=== PATIENT | male | born 1960 | race Caucasian/White ===

== ENCOUNTER 2016-09-09 14:46 | Emergency (ER) | payer SELFPAY ==
[~2016-09-09] VITALS: Ht 172.7 cm; Wt 81.1 kg
[2016-09-09 14:46] VITALS: Ht 172.7 cm; Wt 81.1 kg
[~2016-09-09 14:46] MED LIST: ALBUAER19 INH
[2016-09-09] MEDS ORDERED: KETOROLAC TROMETHAMINE 60 MG/2 ML VIAL IM STA (15:19)
[2016-09-09] MEDS ORDERED: MoRPHine SULFATE 10 MG/ML CARP/VIAL IM STA (15:19)
[2016-09-09] MEDS ORDERED: PRVHFAIN INH (15:27)
[2016-09-09] MEDS ORDERED: IBUP-1450 PO (15:27)
[2016-09-09] MEDS ORDERED: MoRPHine SULFATE 2 MG/ML CARP ONE (15:32)
[2016-09-09] MEDS ORDERED: MoRPHine SULFATE 4 MG/ML 1 ML CARP\\VIAL ONE (15:32)
--- NOTE | 2016-09-09 16:09 | EMERGENCY ROOM VISIT NOTE ---
History First contact with patient: 14:54 Chief Complaint: BACK PAIN Stated Complaint: BACK PAIN History of Present Illness The patient is a 56 year old male who presents to the Emergency Room with complaints of low back pain 3 weeks. The patient states that he has a history of chronic back pain which flares up 1-2 times per year. He states that typically, he is able to do exercises to "open his vertebrae" and this helps to relieve his pain. He states that he has tried these exercises with no relief. The pain is located in the low back and is worse on the left side. He states that the pain is worse when he sits for a long time. He is having difficulty moving and states that he has been unable to climb stairs for the past few days because he is having difficulty lifting his legs. He states he has had a tingling sensation in both legs, worse in the right leg. He states that he called the ambulance because he was not able to get himself into a car to come here. He has not been taking any medications at home for the pain. He has never seen a specialist for his back pain. Review of Systems A complete 10 point review of systems was reviewed with the patient with pertinent positives and negatives as per history of present illness. All else were negative. Social History Smoking Status: Former Smoker Current/Historical Medications Scheduled Prednisone (Prednisone), 0 PO DAILY Scheduled PRN Albuterol (Ventolin Hfa), 2 PUFFS INH UD PRN for Wheezing Hydrocodone/Acetaminophen 5MG/325MG ([place] 5MG/325MG), 1-2 TABLET PO Q4H PRN for Pain Ibuprofen (Motrin), 600 MG PO Q6H PRN for Pain Allergies Coded Allergies: Egg (Verified Allergy, ,, 12/14/11) Peanut Butter Flavor (Verified Allergy, ,, 12/14/11) Penicillins (Verified Allergy, ., 12/14/11) Physical Exam Vital Signs Date Time Temp Pulse Resp B/P (MAP) Pulse Ox O2 Delivery O2 Flow Rate FiO2 09/09/16 18:10 36.6 61 18 118/78 98 09/09/16 18:09 61 18 118/78 98 Room Air 09/09/16 17:26 63 18 120/80 98 Room Air 09/09/16 15:05 36.6 60 18 120/80 98 Room Air 09/09/16 14:46 36.6 60 18 120/80 98 Room Air Physical Exam VITALS: Vitals are noted on the nurse's note and reviewed by myself. No abnormalities noted. GENERAL: This is a 56-year-old male, in no acute distress, nondiaphoretic, well- developed well-nourished. SKIN: The skin was without rashes, erythema, edema, or bruising. HEAD: Normocephalic atraumatic. EYES: Pupils equal round and reactive to light and accommodation. HEART: Regular rate and rhythm without murmurs gallops or rubs. LUNGS: Clear to auscultation bilaterally without wheezes, rales or rhonchi. ABDOMEN: Soft, nontender to palpation. MUSCULOSKELETAL: No muscle atrophy, erythema, or edema noted of the back. There is no tenderness over the lumbar spinous processes. There is no tenderness over the paraspinous muscles. There is no tenderness over the thoracic spine or paraspinous muscles. There are no muscle spasms present. The patient is slow to move around with maximum pain with flexion. Negative straight leg raise test. NEURO: Patient was alert and oriented to person place and time. Normal sensation to light and sharp touch. Deep tendon reflexes 2+ in the lower extremities. Dorsalis pedis pulse 2+ bilaterally. Medical Decision & Procedures ER Provider Diagnostic Interpretation: MRI OF THE LUMBAR SPINE WITHOUT CONTRAST FINDINGS: For purposes of numbering on this exam, the L5-S1 disc space is assigned to axial image 27 of 30. Vertebral body heights are maintained. There is no marrow edema or marrow replacement. Conus terminates at the upper L1 level. There is no intracanalicular mass or fluid collection. There is moderate distention of the bladder. L1-2: There is a small left paracentral disc protrusion with mild narrowing of the left lateral recess. Central canal and neural foramen are patent. L2-3: There is a small left central disc protrusion with minimal narrowing of the left lateral recess. Central canal and neural foramen are patent. L3-4: The central canal and neural foramen are patent. There is minimal disc bulge. L4-5: The central canal and neural foramen are patent. L5-S1: The central canal and neural foramen are patent. IMPRESSION: 1. Mild multilevel degenerative disc disease with small left paracentral disc protrusions at L1-L2 and L2-L3 that result in mild narrowing of the left lateral recesses. 2. Patent central canal. Medications Administered Medications (Trade) Dose Ordered Sig/Althea Route Start Time Stop Time Status Last Admin Dose Admin Ketorolac Tromethamine (Toradol Inj) 60 mg NOW STAT IM 09/09/16 15:19 09/09/16 15:22 DC 09/09/16 15:41 60 MG Morphine Sulfate (MoRPHine SULFATE INJ) 4 mg STK-MED ONCE .ROUTE 09/09/16 15:32 09/09/16 15:33 DC 09/09/16 15:42 4 MG Morphine Sulfate (MoRPHine SULFATE INJ) 2 mg STK-MED ONCE .ROUTE 09/09/16 15:32 09/09/16 15:33 DC 09/09/16 15:42 2 MG ED Course The patient was evaluated as above. Patient was medicated with 60 mg Toradol IM and 6 mg morphine IM. MRI of the lumbar spine was performed and read by radiology as above. Patient was reevaluated and reported some improvement. He was walking around without difficulty at this time. Findings were discussed. Discharge instructions were reviewed with the patient. The patient verbalized understanding of my assessment and treatment plan and was discharged home in good condition. Medical Decision Differential diagnosis includes cauda equina syndrome, cord compression, disc herniation, muscle spasm, lumbar strain, epidural abscess, malignancy, transverse myelitis, urinary tract infection, colitis, diverticulitis, kidney stone, among others. The patient is a 56-year-old male who presents today complaining of low back pain. Due to the patient's complaint of weakness and difficulty walking, MRI of the lumbar spine was ordered. This was read by radiology with degenerative disc disease and some mild disc bulging. There was no narrowing of the spinal canal. Findings were discussed with the patient. He did feel better after Toradol and morphine. He will be placed on a steroid taper and was given a short course of pain medication. He was instructed to follow-up with his primary care provider for further evaluation. Conservative measures were discussed with the patient. He should return for worsening or new/concerning symptoms. Medication reconciliation: I attest that I have personally reviewed the patient 's current medication list. Blood pressure screening: Patient was found to have normal blood pressure on screening and does not require follow-up. [place] Drug Monitoring Program Search Results: patient reviewed within database, no issues identified Impression Primary Impression: Degenerative disc disease Departure Information Dispostion Home / Self-Care Condition GOOD Prescriptions Hydrocodone/Acetaminophen 5MG/325MG ([place] 5MG/325MG) Tab 1-2 TABLET PO Q4H Y for Pain, #15 TAB For Initial Treatment Prov: Shellie Moser PA-C 09/09/16 Prednisone (Prednisone) 20 Mg Tab 0 PO DAILY, #18 TAB 3 DAILY FOR 3 DAYS, THEN 2 DAILY FOR 3 DAYS, THEN 1 DAILY FOR 3 DAYS. Prov: Shellie Moser PA-C 09/09/16 Referrals [facility] (PCP) Patient Instructions My [facility] Additional Instructions You have been treated in the Emergency Department for Back Pain. You have received pain medicine in the emergency department which impairs your ability to operate a vehicle. It is illegal for you to drive after receiving these medicines. You have been prescribed [place] to be used for pain control. This is a narcotic medication. You cannot drive or consume alcohol while on this medicine. This medicine should only be used for pain that cannot be controlled with over-the- counter pain medicines. You have been prescribed Prednisone. This is a steroid which will help decrease your inflammation. Take this medicine as prescribed. Take the ENTIRE 9 day course. It is best to take steroids early in the morning as PM dosing can affect your sleeping patterns. If this is an acute injury, ice can be applied to the area of pain for the first 3 days to help decrease pain and inflammation. After the first 3 days, a heating pad can be used over the area for continued soothing relief. You should schedule a follow-up appointment in 2-3 days with your Primary Care Provider for further evaluation and treatment of your back pain. Return to the Emergency Department if your current symptoms worsen despite treatment course outlined above, or if you develop any of the following symptoms : intractable pain despite aforementioned treatment course, loss of control of your bowel or bladder, numbness or tingling in your groin, or development of a fever. Problem Qualifiers Primary Impression: Degenerative disc disease Spinal region: lumbar Qualified Codes: M51.36 - Other intervertebral disc degeneration, lumbar region
--- NOTE | 2016-09-09 16:31 | DIAGNOSTIC IMAGING REPORT ---
ORBIT RADIOGRAPHS 3 VIEWS HISTORY: pre-MRI screening. COMPARISON: None. FINDINGS: There are no radiopaque foreign bodies identified within the orbits. IMPRESSION: No radiopaque foreign bodies identified within the orbits. Electronically signed by: Zane Bruce M.D. 09/09/2016 4:30 PM Dictated Date/Time: 09/09/2016 4:14 PM
--- NOTE | 2016-09-09 17:10 | DIAGNOSTIC IMAGING REPORT ---
MRI OF THE LUMBAR SPINE WITHOUT CONTRAST CLINICAL HISTORY: Low back pain. Bilateral leg weakness. COMPARISON STUDY: No previous studies for comparison. TECHNIQUE: Utilizing a 1.5 Yasmin magnet and dedicated coil, multiplanar, multiecho imaging of the lumbar spine was performed without IV contrast. FINDINGS: For purposes of numbering on this exam, the L5-S1 disc space is assigned to axial image 27 of 30. Vertebral body heights are maintained. There is no marrow edema or marrow replacement. Conus terminates at the upper L1 level. There is no intracanalicular mass or fluid collection. There is moderate distention of the bladder. L1-2: There is a small left paracentral disc protrusion with mild narrowing of the left lateral recess. Central canal and neural foramen are patent. L2-3: There is a small left central disc protrusion with minimal narrowing of the left lateral recess. Central canal and neural foramen are patent. L3-4: The central canal and neural foramen are patent. There is minimal disc bulge. L4-5: The central canal and neural foramen are patent. L5-S1: The central canal and neural foramen are patent. IMPRESSION: 1. Mild multilevel degenerative disc disease with small left paracentral disc protrusions at L1-L2 and L2-L3 that result in mild narrowing of the left lateral recesses. 2. Patent central canal. Electronically signed by: Zane Bruce M.D. 09/09/2016 5:08 PM Dictated Date/Time: 09/09/2016 5:00 PM
[2016-09-09] MEDS ORDERED: PRED20TA PO (17:47)
[2016-09-09] MEDS ORDERED: HYDR-5688 PO (17:50)
[2016-09-09 18:10] VITALS: BP 118/78; PULSE 61; TEMP 36.6; O2SAT 98
== END 2016-09-09 16:11 | disposition home or self-care (01) ==
LOC: EDBD 14:46 → C.EDB 14:46
DX: M51.36 Other intervertebral disc degeneration, lumbar region (principal); Z87.891 Personal history of nicotine dependence